=== PATIENT | female | born 1980 | race Caucasian/White ===

== ENCOUNTER 2017-08-18 14:49 | Emergency (ER) | payer MEDICAID ==
[~2017-08-18] VITALS: Ht 157.5 cm; Wt 60.0 kg
[~2017-08-18 14:49] MED LIST: METH4TAB3 PO; METH500T PO
[2017-08-18 15:31] VITALS: BP 112/76
== END 2017-08-18 15:32 | disposition home or self-care (01) ==
LOC: ER 14:49
DX: H69.83 Other specified disorders of Eustachian tube, bilateral (principal); J40 Bronchitis, not specified as acute or chronic; G89.29 Other chronic pain; Z88.0 Allergy status to penicillin
CPT/HCPCS: 99281

== ENCOUNTER 2017-08-27 17:04 | Emergency (ER) | payer MEDICAID ==
[~2017-08-27] VITALS: Ht 157.5 cm; Wt 61.0 kg
[2017-08-27 17:15] VITALS: BP 121/74
[2017-08-27 17:51] LABS: BASOPHILS % (AUTO) 0.1 % (0-1); EOSINOPHILS # (AUTO) 0.2 X10'3 (0-0.9); EOSINOPHILS % (AUTO) 1.6 % (0-6); HEMATOCRIT 39.3 % (35.0-45.0); HEMOGLOBIN 13.8 g/dl (12.0-16.0); LYMPHOCYTES # (AUTO) 1.4 X10'3 (1.1-4.8); LYMPHOCYTES % (AUTO) 12.2 % (21-51); MEAN CORPUSCULAR HEMOGLOBIN 32.2 PG (27.0-31.0); MEAN CORPUSCULAR HGB CONC 35.2 % (33.0-36.5); MEAN CORPUSCULAR VOLUME 91.7 FL (78-98); MEAN PLATELET VOLUME 8.7 FL (7.4-10.4); MONOCYTES # (AUTO) 0.5 X10'3 (0-0.9); MONOCYTES % (AUTO) 4.3 % (2-12); NEUTROPHILS # (AUTO) 9.7 X10'3 (1.8-7.7); NEUTROPHILS % (AUTO) 81.8 % (42-75); PLATELET COUNT 306 X10'3 (140-440); RED BLOOD COUNT 4.29 X10'6 (4.20-5.60); RED CELL DISTRIBUTION WIDTH 13.3 % (11.5-14.5); WHITE BLOOD COUNT 11.9 X10'3 (4.5-11.0)
[2017-08-27 18:08] LABS: ALANINE AMINOTRANSFERASE 26 U/L (12-78); ALBUMIN 4.3 G/DL (3.4-5.0); ALBUMIN/GLOBULIN RATIO 1.5 (1.1-1.5); ALKALINE PHOSPHATASE 43 IU/L (46-116); ANION GAP 9 (8-16); ASPARTATE AMINO TRANSFERASE 18 U/L (10-37); BILIRUBIN,TOTAL 0.3 MG/DL (0.1-1.0); BLOOD UREA NITROGEN 8 MG/DL (7-18); BUN/CREATININE RATIO 11.4 (6.6-38.0); CALCIUM 8.7 MG/DL (8.5-10.1); CHLORIDE 111 MMOL/L (99-107); GLUCOSE 154 MG/DL (70-104); POTASSIUM 3.9 MMOL/L (3.5-5.1); SODIUM 145 MMOL/L (135-145); TOTAL CARBON DIOXIDE 24.8 MMOL/L (24-32); TOTAL PROTEIN 7.1 G/DL (6.4-8.2); eGFR > 90 ML/MIN
[2017-08-27] MEDS ORDERED: albuterol 2.5 MG/3 ML nebule NEB ONE (19:15)
[2017-08-27] MEDS ORDERED: METH4TAB3 PO (19:16)
[2017-08-27] MEDS ORDERED: AZIT-55 PO (19:16)
[2017-08-27] MEDS ORDERED: ALBU8.5H8 IH (19:16)
[2017-08-27] MEDS ORDERED: CODE120S2 PO (21:00)
== END 2017-08-27 21:03 | disposition home or self-care (01) ==
LOC: ER 17:05
DX: J01.80 Other acute sinusitis (principal); J06.9 Acute upper respiratory infection, unspecified; H66.92 Otitis media, unspecified, left ear; H72.92 Unspecified perforation of tympanic membrane, left ear; J98.01 Acute bronchospasm; G89.29 Other chronic pain; F17.200 Nicotine dependence, unspecified, uncomplicated; Z71.6 Tobacco abuse counseling; Z88.0 Allergy status to penicillin
CPT/HCPCS: 36415; 71046; 80053; 84484; 85025; 93005; 94640; 94760; 99285

== ENCOUNTER 2018-10-01 21:48 | Emergency (ER) | payer MEDICAID, OTHER ==
[~2018-10-01] VITALS: Ht 157.5 cm; Wt 60.0 kg
[~2018-10-01 21:48] MED LIST changes: +ALBU8.5H8 IH; +CODE120S2 PO
[2018-10-01 21:57] VITALS: BP 122/82
== END 2018-10-01 22:53 | disposition home or self-care (01) ==
LOC: ER 21:48
DX: S61.210A Laceration without foreign body of right index finger without damage to nail, initial encounter (principal); G89.29 Other chronic pain; Z88.0 Allergy status to penicillin; Z79.899 Other long term (current) drug therapy; W25.XXXA Contact with sharp glass, initial encounter; Y93.G1 Activity, food preparation and clean up; Y92.89 Other specified places as the place of occurrence of the external cause; Y99.0 Civilian activity done for income or pay
CPT/HCPCS: 99281

== ENCOUNTER 2018-12-10 13:06 | Outpatient (CLI) | payer OTHER | END 2018-12-10 23:59 | disposition home or self-care (01) | LOC: 64 CT 13:06 | PROVIDERS: ATTEND Family Medicine | DX: K57.30 Diverticulosis of large intestine without perforation or abscess without bleeding (principal); K80.20 Calculus of gallbladder without cholecystitis without obstruction; R31.9 Hematuria, unspecified; M51.27 Other intervertebral disc displacement, lumbosacral region | CPT/HCPCS: 74176 ==

== ENCOUNTER 2018-12-13 17:45 | Emergency (ER) | payer OTHER ==
[~2018-12-13] VITALS: Ht 157.5 cm; Wt 61.4 kg
[2018-12-13 18:24] LABS: CLARITY,URINE SLIGHTLY CLOUDY (Clear); COLOR,URINE YELLOW (Yellow); GLUCOSE, URINE NEGATIVE (Neg); KETONES,URINE NEGATIVE (Neg); LEUKOCYTE ESTERASE ,URINE NEGATIVE (Neg); NITRITES, URINE NEGATIVE (Neg); OCCULT BLOOD,URINE NEGATIVE (Neg); PROTEIN,URINE NEGATIVE (Neg); UROBILINOGEN,URINE 0.2 E.U/dL (0.2-1.0)
[2018-12-13 18:26] LABS: UA COLLECTION TYPE CLN CATCH MIDSTREAM
[2018-12-13 18:35] LABS: BACTERIA,URINE 3+ /HPF (Neg); MUCUS STRANDS MANY /LPF (Neg); RBC,URINE NONE SEEN /HPF (0-2); SQUAMOUS EPITHELIAL CELL,UR MANY /LPF (FEW); WBC,URINE 0-4 /HPF (0-4)
[2018-12-13] MEDS ORDERED: SULF1TAB49 PO (19:06)
[2018-12-13 19:28] VITALS: BP 129/62
== END 2018-12-13 19:32 | disposition home or self-care (01) ==
LOC: ER 17:46
DX: N39.0 Urinary tract infection, site not specified (principal); G89.29 Other chronic pain; Z88.0 Allergy status to penicillin; Z79.899 Other long term (current) drug therapy
CPT/HCPCS: 81001; 99283

== ENCOUNTER 2018-12-14 10:02 | Outpatient (CLI) | payer OTHER ==
[~2018-12-14 10:02] MED LIST changes: +SULF1TAB49 PO
[2018-12-14 10:55] LABS: BASOPHILS % (AUTO) 0.6 % (0-1); EOSINOPHILS # (AUTO) 0.1 X10'3 (0-0.9); EOSINOPHILS % (AUTO) 2.3 % (0-6); HEMATOCRIT 44.2 % (35.0-45.0); HEMOGLOBIN 14.9 g/dl (12.0-16.0); LYMPHOCYTES % (AUTO) 34.4 % (21-51); MEAN CORPUSCULAR HEMOGLOBIN 32.3 PG (27.0-31.0); MEAN CORPUSCULAR HGB CONC 33.8 g/dL (33.0-36.5); MEAN CORPUSCULAR VOLUME 95.3 FL (78-98); MONOCYTES # (AUTO) 0.8 X10'3 (0-0.9); MONOCYTES % (AUTO) 14.5 % (2-12); NEUTROPHILS # (AUTO) 2.8 X10'3 (1.8-7.7); NEUTROPHILS % (AUTO) 48.2 % (42-75); PLATELET COUNT 270 X10'3 (140-440); RED BLOOD COUNT 4.63 X10'6 (4.20-5.60); RED CELL DISTRIBUTION WIDTH 12.8 % (11.5-14.5); WHITE BLOOD COUNT 5.8 X10'3 (4.5-11.0)
[2018-12-14 11:25] LABS: ALANINE AMINOTRANSFERASE 24 U/L (12-78); ALBUMIN 4.5 G/DL (3.4-5.0); ALBUMIN/GLOBULIN RATIO 1.3 (1.1-1.5); ALKALINE PHOSPHATASE 49 IU/L (46-116); ANION GAP 10 (8-16); ASPARTATE AMINO TRANSFERASE 15 U/L (10-37); BILIRUBIN,TOTAL 0.5 MG/DL (0.1-1.0); BLOOD UREA NITROGEN 15 MG/DL (7-18); BUN/CREATININE RATIO 15.6 (6.6-38.0); CHLORIDE 106 MMOL/L (99-107); CHOL/HDL RATIO 2.4 (0.00-4.99); CHOLESTEROL 156 MG/DL (0-200); CREATININE 0.96 MG/DL (0.40-0.90); GLUCOSE 95 MG/DL (70-104); HDL CHOLESTEROL 66 MG/DL (35-60); LDL CHOLESTEROL 74 MG/DL (50-100); POTASSIUM 4.2 MMOL/L (3.5-5.1); SODIUM 139 MMOL/L (135-145); TOTAL CARBON DIOXIDE 23.1 MMOL/L (24-32); TOTAL PROTEIN 7.9 G/DL (6.4-8.2); TRIGLYCERIDES 82 MG/DL (20-135); eGFR 66 ML/MIN
== END 2018-12-14 23:59 | disposition home or self-care (01) ==
LOC: LAB 10:02
PROVIDERS: ATTEND Family Medicine
DX: J32.9 Chronic sinusitis, unspecified (principal); Z76.89 Persons encountering health services in other specified circumstances; F17.200 Nicotine dependence, unspecified, uncomplicated
CPT/HCPCS: 36415; 80053; 80061; 84436; 84443; 85025

== ENCOUNTER 2018-12-31 13:44 | Outpatient (CLI) | payer OTHER ==
[~2018-12-31 13:44] MED LIST changes: +ONDA4TAB6 PO; -SULF1TAB49 PO
== END 2018-12-31 23:59 | disposition home or self-care (01) ==
LOC: 64 CT 13:44
PROVIDERS: ATTEND Family Medicine
DX: J32.9 Chronic sinusitis, unspecified (principal); F17.200 Nicotine dependence, unspecified, uncomplicated
CPT/HCPCS: 70486

== ENCOUNTER 2019-01-09 14:16 | Outpatient (CLI) | payer OTHER | END 2019-01-09 23:59 | disposition home or self-care (01) | LOC: VAS 14:16 | PROVIDERS: ATTEND Family Medicine | DX: S76.311D Strain of muscle, fascia and tendon of the posterior muscle group at thigh level, right thigh, subsequent encounter (principal); X58.XXXD Exposure to other specified factors, subsequent encounter | CPT/HCPCS: 93971 ==

== ENCOUNTER 2019-05-07 14:11 | Outpatient (CLI) | payer OTHER | END 2019-05-07 23:59 | disposition home or self-care (01) | LOC: RAD 14:11 | PROVIDERS: ATTEND Obstetrics & Gynecology | DX: N85.4 Malposition of uterus (principal); N83.8 Other noninflammatory disorders of ovary, fallopian tube and broad ligament; N92.1 Excessive and frequent menstruation with irregular cycle; F17.200 Nicotine dependence, unspecified, uncomplicated; Z85.41 Personal history of malignant neoplasm of cervix uteri | CPT/HCPCS: 76830; 76856 ==

== ENCOUNTER → 2020-01-10 | Emergency (ER) | payer OTHER ==
[~2020-01-10] VITALS: Ht 162.6 cm; Wt 60.0 kg
[2020-01-10 16:02] VITALS: BP 99/68
== END | disposition home or self-care (01) ==
LOC: ER 15:56
DX: J32.9 Chronic sinusitis, unspecified (principal); R05 Cough; Z03.818 Encounter for observation for suspected exposure to other biological agents ruled out; R09.81 Nasal congestion; G89.29 Other chronic pain; Z88.0 Allergy status to penicillin; Z79.899 Other long term (current) drug therapy
CPT/HCPCS: 71045; 87635; 99283; 99284

== ENCOUNTER 2024-04-29 09:16 | Emergency (ER) | payer BC, OTHER ==
[~2024-04-29] VITALS: Ht 157.5 cm; Wt 68.0 kg
[~2024-04-29 09:16] MED LIST changes: +ALBU8.5H17 IH; -ALBU8.5H8 IH
[2024-04-29 09:21] VITALS: TEMP 97.5
[2024-04-29] MEDS ORDERED: AZIT500T18 PO (10:31)
[2024-04-29 10:40] VITALS: BP 129/96; PULSE 77; RESP 16; O2SAT 99
== END 2024-04-29 10:41 | disposition home or self-care (01) ==
LOC: ER 09:17
DX: J20.9 Acute bronchitis, unspecified (principal); G89.29 Other chronic pain; Z88.0 Allergy status to penicillin; Z79.899 Other long term (current) drug therapy
CPT/HCPCS: 99283

== ENCOUNTER 2024-12-30 11:17 | Day surgery (SDC) | payer MEDICAID ==
[~2024-12-30] VITALS: Ht 157.5 cm; Wt 65.9 kg
[2024-12-30] VITALS (9 sets, daily range): BP systolic 89–105; BP diastolic 62–75; PULSE 77–83; RESP 16–17; TEMP 97.9; O2SAT 95–100
[2024-12-30] MEDS ORDERED: ASPI-1265 PO (11:59)
[2024-12-30] MEDS ORDERED: EPIN0.3A3 (11:59)
[2024-12-30] MEDS ORDERED: HYDR-3927 PO (11:59)
[2024-12-30] MEDS ORDERED: MELO-102 PO (11:59)
[2024-12-30] MEDS ORDERED: TRAZ-251 PO (11:59)
[2024-12-30] MEDS ORDERED: BACL10TA2 PO (11:59)
[2024-12-30] MEDS ORDERED: TOPI-95 PO (11:59)
[2024-12-30] MEDS ORDERED: AZEL137S4 BOTHNARES (11:59)
[2024-12-30] MEDS ORDERED: SUMA50TA17 PO (11:59)
[2024-12-30] MEDS: MIDAZolam 1mg/ml 10ml vial IV ONE (14:13)
[2024-12-30] MEDS: fentaNYL/PF 50MCG/1 ML 2ML syringe IV ONE (14:13)
[2024-12-30] MEDS: normal saline 1000ml 1,000 ML IV SCH (14:14)
--- NOTE | 2024-12-31 18:00 | CARDIOLOGY REPORT ---
APPROVED REPORT EXAM: Focused, limited transesophageal echocardiogram with color flow Doppler and saline study. Patient Location: OUT-PATIENT Blood Pressure: 100 / 68 mmHg Heart Rate: 94 bpm Rhythm: SINUS Indications EVALUATE INTERATRIAL SEPTUM (ASD vs PFO?) CEREBRALVASCULAR ACCIDENT WITH THROMBOLYTIC THERAPY MICHAEL PROBE PASSED BY: MD JUAN Hematology Nurse: Salo Sepulveda MD Previous echo: NONE LEFT VENTRICLE Normal LV size and wall thickness. Overall systolic function is normal. LVEF is 65-70%. RIGHT VENTRICLE RV is mildly increased in size with normal function. ATRIA The left atrium size is normal. Right atrium is mildly dilated. Lipomatous interatrial septum, mobile foramen ovalis. Saline study was performed with 2 IV injections of 10 ccs of agitated normal saline at rest and with valsalva. Initial injection appears negative, however, right to left flow detected at the inferior-most segment of the Foramen ovalis with valsalva maneuver. See loop: 11. CONCLUSION Normal LV size and wall thickness. Overall systolic function is normal. LVEF is 65-70%. RV is mildly increased in size with normal function. The left atrium size is normal. Right atrium is mildly dilate d. Lipomatous interatrial septum, mobile foramen ovalis. Saline study was performed with 2 IV injecti ons of 10 ccs of agitated normal saline at rest and with valsalva. Initial injection appears negative , however, right to left flow detected at the inferior-most segment of the Foramen ovalis with valsal va maneuver. See loop: 11. Conclusion Normal LV size and wall thickness. Overall systolic function is normal. LVEF is 65-70%. RV is mildly increased in size with normal function. The left atrium size is normal. Right atrium is mildly dilated. Lipomatous interatrial septum, mobile foramen ovalis. Saline study wa s performed with 2 IV injections of 10 ccs of agitated normal saline at rest and with valsalva. Initi al injection appears negative, however, right to left flow detected at the inferior-most segment of t he Foramen ovalis with valsalva maneuver. See loop: 11.
== END 2024-12-30 14:50 | disposition home or self-care (01) ==
LOC: SSTAY O 11:17
PROVIDERS: ATTEND Student in an Organized Health Care Education/Training Program
DX: I63.9 Cerebral infarction, unspecified (principal); Q21.12 Patent foramen ovale
CPT/HCPCS: 93325; C8925; J2250; J3010; J7030; 93312

== ENCOUNTER 2025-02-05 11:54 | Day surgery (SDC) | payer MEDICAID ==
[2025-02-05] VITALS (18 sets, daily range): BP systolic 82–111; BP diastolic 50–92; PULSE 66–93; RESP 10–18; TEMP 98.4; O2SAT 97–100
[~2025-02-05] VITALS: Ht 157.5 cm; Wt 64.7 kg
[~2025-02-05 11:54] MED LIST changes: -ALBU8.5H17 IH; +ASPI-1265 PO; +AZEL137S4 BOTHNARES; +BACL10TA2 PO; -CODE120S2 PO; +EPIN0.3A3; +HYDR-3927 PO; +MELO-102 PO; -METH4TAB3 PO; -METH500T PO; -ONDA4TAB6 PO; +SUMA50TA17 PO; +TOPI-95 PO; +TRAZ-251 PO
[2025-02-05 12:25] LABS: MEAN PLATELET VOLUME 8.8 FL (7.4-10.4); RED CELL DISTRIBUTION WIDTH 12.8 % (11.5-14.5)
[2025-02-05 12:34] LABS: CREATININE 0.77 MG/DL (0.40-0.90); TOTAL CARBON DIOXIDE 20.7 MMOL/L (24-32); eGFR 82 ML/MIN
[2025-02-05 12:38] LABS: APTT 25 SECONDS (22-32); INR 1.0 INR
[2025-02-05] MEDS: clopidogrel 300mg tablet PO ONE (14:14)
[2025-02-05] MEDS: scopolamine 1MG/72H patch 1 PATCH PATCH.TD.3 TD ONE (14:15)
[2025-02-05] MEDS: vancomycin/NS 1 GM ADD-VANTAGE 250 ML IV ONE (14:16)
[2025-02-05] MEDS ORDERED: ondansetron/PF 4mg/2ml inj IV PRN (15:05)
[2025-02-05] MEDS ORDERED: hydrALAZINE 20mg/ml inj. IV PRN (15:05)
[2025-02-05] MEDS ORDERED: HYDROmorphone/PF 0.2 MG/ML SYRINGE IV PRN ×2 (15:05)
[2025-02-05] MEDS ORDERED: labetalol 20mg/4ml (5mg/ml) syringe IV PRN (15:05)
[2025-02-05] MEDS ORDERED: ringers solution, lacted 1,000 ML IV SCH (15:05)
[2025-02-05] MEDS ORDERED: heparin 1,000unit/ml 10ml vial 0 ML ONE (15:06)
[2025-02-05] MEDS ORDERED: LIDOcaine 1% 30ml preserv. free vial ONE (15:06)
[2025-02-05] MEDS ORDERED: fentaNYL/PF 50MCG/1 ML 2ML syringe ONE (15:16)
[2025-02-05] MEDS ORDERED: ondansetron/PF 4mg/2ml inj ONE ×2 (15:23→15:24)
[2025-02-05] MEDS ORDERED: dexamethasone sod phosphate 4mg/ml inj. ONE (15:24)
[2025-02-05] MEDS ORDERED: propofol inj 20 ML IV ONE ×2 (15:24)
[2025-02-05] MEDS ORDERED: midazolam 1 mg/ML 2ml injection ONE (15:24)
[2025-02-05] MEDS ORDERED: LIDOcaine 1%/PF 5ML 10 MG/ML VIAL ONE (15:25)
[2025-02-05] MEDS ORDERED: MELOXICAM 7.5 MG TABLET PO PRN (16:10)
[2025-02-05] MEDS ORDERED: azelastine Nasal Spray bottle NS PRN (16:10)
--- NOTE | 2025-02-05 16:21 | OPERATIVE REPORT ---
Operative Report Providers to CC CC: STACEY SEPULVEDA MD ~ Date of Procedure: Feb 05, 2025 Pre-Operative Diagnosis: Prior CVA with PFO Post-Operative Diagnosis SAME as PRE-Op Procedure Performed 1. Transseptal Puncture via MICHAEL guidance 2. Bubble Study 3. Patent Forament Ovale closure with 30mm [place] Cardioform septal occluder Device 4. Ultrasound guided access, right Femoral Vein Surgeon: Linda Sepulveda MD Head Athletic Trainer n/a Anesthesiologist: Shira Martinez Type of Anesthesia: General Findings: PFO amenable to percutaneous closure. Complications None Prosthetics\\Implants used: 30mm [place] Cardioform PFO Occluder Estimated Blood Loss: Minimal Specimen Removed: None Description of Procedure: The patient was brought to the cathode ray tube salvage processor in a fasting state. They underwent General anesthesia. Ultrasound was used to guide access to the right femoral vein where a single Perclose devices were placed and upsized to an 11Fr sheath. Heparin was given to maintain an ACT over 250 seconds. A bubble study was performed confirming the PFO with valsalva. An 0.035" wire was advanced into the IVC. Over this, an MPA catheter was used to direct the wire across the PFO into the left upper pulmonary vein. The MPA was advanced over the wire into the pulmonary vein where the J-wire was exchanged for an Amplatz J-wire. Over this, the PFO occluder system was brought into the left atrium. The LA disc was deployed and pulled back to engage the septum at which time the RA disc was advanced out. This was confirmed on MICHAEL and Fluorscopy. Once confirmed the disc was locked into place. Repeat bubble study confirmed no crossing of bubbles even with valsalva. The device was then released. The guide and delivery system were removed and the perclose tied as well as the [id number] suture, ensuring adequate hemostasis. RESULTS: 1. Successful PFO close with 30mm [place] CardioForm occluder. 2. Right Femoral Vein access, closed with Perclose x 1 and [id number] suture 3. Resume ASA 81mg QD, Plavix 75mg QD x 30d They will be watched in the recovery area until stable, then discharged home. LINDA SEPULVEDA MD Feb 05, 2025 16:21
[2025-02-05] MEDS: acetaminophen 1,000mg/100ml IV 100 ML IV PRN (16:31)
[2025-02-05] MEDS: morphine 4 MG/ML inj SYRINge IV PRN (16:46)
[2025-02-05] MEDS: HYDROcodone/acetaminophen 5mg/325mg tablet PO PRN (18:58)
--- NOTE | 2025-02-07 19:01 | CARDIOLOGY REPORT ---
APPROVED REPORT EXAM: Focused, limited intraprocedural transesophageal 2D, spectral and color flow Doppler echocardio gram during PFO closure device deployment. Patient Location: [facility] Blood Pressure: 88/58 mmHg Indications Patent Forament [place] Closure 30mm [place] Cardioform septal occluder Device MICHAEL probe passed by Javier Martinez MD. Authors Motivational is Salo Sepulveda MD No previous echo LEFT VENTRICLE LV appears normal in size and thickness. Overall systolic function appears normal. LVEF is 60%. RIGHT VENTRICLE RV appears normal in size and function. ATRIA Saline study was performed with 2 IV injections of 10 ccs of agitated normal saline at rest, with cou gh, and with valsalva. Posative saline study for right to left flow. 30mm [place] Cardioform septal occl uder device succesfully placed with no residual flow detected by color flow doppler as well as a nega tive saline contrast study. GRE[place]LS Descending aorta is normal in caliber. PERICARDIUM There is no pericardial effusion. CONCLUSION LV appears normal in size and thickness. Overall systolic function appears normal. LVEF is 60%. RV ap pears normal in size and function. Saline study was performed with 2 IV injections of 10 ccs of agita mireya normal saline at rest, with cough, and with valsalva. Posative saline study for right to left brandy w. 30mm [place] Cardioform septal occluder device succesfully placed with no residual flow detected by c olor flow doppler as well as a negative saline contrast study. There is no pericardial effusion. Conclusion LV appears normal in size and thickness. Overall systolic function appears normal. LVEF is 60%. RV appears normal in size and function. Saline study was performed with 2 IV injections of 10 ccs of agitated normal saline at rest, with cou gh, and with valsalva. Posative saline study for right to left flow. 30mm [place] Cardioform septal occ luder device succesfully placed with no residual flow detected by color flow doppler as well as a neg ative saline contrast study. There is no pericardial effusion.
== END 2025-02-05 19:02 | disposition home or self-care (01) ==
LOC: SSTAY O 11:54
PROVIDERS: ATTEND Student in an Organized Health Care Education/Training Program
DX: Q21.12 Patent foramen ovale (principal); Z86.73 Personal history of transient ischemic attack (TIA), and cerebral infarction without residual deficits; G43.909 Migraine, unspecified, not intractable, without status migrainosus; Z79.899 Other long term (current) drug therapy; Z98.890 Other specified postprocedural states; Z88.0 Allergy status to penicillin; Z79.01 Long term (current) use of anticoagulants
CPT/HCPCS: 36415; 80048; 82948; 85025; 85347; 85610; 85730; 93312; 93325; 93580; C1760; C1817; J0131; J1100; J1644; J2250; J2270; J2405; J2704; J3010; J3373; J3490; J7120; Q9967; Z7512; 76937; A4618; A6258; A6449; C1769; C1894; J2003

== ENCOUNTER 2025-03-02 19:32 | Emergency (ER) | payer MEDICAID | END 2025-03-02 19:38 | disposition left against medical advice (07) | LOC: ER 19:37 | DX: R04.0 Epistaxis (principal); Z53.21 Procedure and treatment not carried out due to patient leaving prior to being seen by health care provider ==